=== PATIENT | female | born 1995 | race Asian ===

== ENCOUNTER 2025-04-16 19:54 | Emergency (ER) | payer OTHER ==
[~2025-04-16] VITALS: Ht 160 cm; Wt 59.1 kg
[2025-04-16 20:10] VITALS: TEMP 98.6
[2025-04-16 20:35] VITALS: BP 118/78; PULSE 82; RESP 17; O2SAT 99
== END 2025-04-16 21:18 | disposition home or self-care (01) ==
LOC: EMS 19:54
DX: Z20.1 Contact with and (suspected) exposure to tuberculosis (principal)
CPT/HCPCS: 71046; 99283